=== PATIENT | female | born 1955 | race African-American/Black ===

== ENCOUNTER 2018-10-09 18:18 | Emergency (ER) | payer OTHER ==
[~2018-10-09] VITALS: Ht 157.5 cm; Wt 74.8 kg
--- NOTE | 2018-10-09 18:54 | NUR ---
VERBAL REPORT GIVEN TO ALE ESTRADA.
[2018-10-09 19:35] VITALS: BP 108/66
== END 2018-10-09 19:37 | disposition home or self-care (01) ==
LOC: ER 18:18
DX: F43.21 Adjustment disorder with depressed mood (principal); I10 Essential (primary) hypertension; E11.9 Type 2 diabetes mellitus without complications; F41.9 Anxiety disorder, unspecified; Z86.73 Personal history of transient ischemic attack (TIA), and cerebral infarction without residual deficits
CPT/HCPCS: 99282

== ENCOUNTER 2022-02-18 12:14 | Emergency (ER) | payer MEDICARE, OTHER ==
[~2022-02-18] VITALS: Ht 154.9 cm; Wt 58.5 kg
[2022-02-18] MEDS ORDERED: SODIUM CHLORIDE 0.9% 1000ML 1,000 ML IV STA (12:35)
[2022-02-18] MEDS ORDERED: INSULIN REGULAR, HUMAN 100 UNIT/1 ML IV ONE (12:45)
[2022-02-18] MEDS ORDERED: SODIUM CHLORIDE 0.9% 1000ML 1,000 ML ONE (12:49)
[2022-02-18 13:11] LABS: BASOPHILS % 0.7 % (0.0-1.0); EOSINOPHILS # (AUTO) 0.1 (0.0-0.4); EOSINOPHILS % 1.5 % (0.0-6.0); HEMATOCRIT 36.3 % (34.2-44.1); HEMOGLOBIN 12.2 g/dL (12.0-16.0); LYMPHOCYTES # (AUTO) 1.3 (1.0-3.2); LYMPHOCYTES % 28.5 % (18.0-39.1); MEAN CORPUSCULAR HGB CONC 33.6 g/dL (31-35); MEAN CORPUSCULAR VOLUME 86.2 fL (81-99); MONOCYTES # (AUTO) 0.4 (0.2-0.8); MONOCYTES % 8.5 % (4.4-11.3); NEUTROPHILS # (AUTO) 2.8 (2.1-6.9); NEUTROPHILS % 60.6 % (38.7-80.0); PLATELET COUNT 293 x10e3/uL (140-360); RED BLOOD COUNT 4.21 x10e6/uL (3.6-5.1)
[2022-02-18 13:31] LABS: ALBUMIN 3.5 g/dL (3.5-5.0); ANION GAP 16.6 mmol/L (8-16); CALCIUM 9.3 mg/dL (8.4-10.2); CREATININE, SERUM 1.83 mg/dL (0.57-1.11); POTASSIUM 3.6 mmol/L (3.5-5.1)
[2022-02-18 16:02] VITALS: BP 119/70
== END 2022-02-18 16:08 | disposition home or self-care (01) ==
LOC: ER 12:18
DX: E11.65 Type 2 diabetes mellitus with hyperglycemia (principal); I10 Essential (primary) hypertension; F41.9 Anxiety disorder, unspecified; I69.354 Hemiplegia and hemiparesis following cerebral infarction affecting left non-dominant side
CPT/HCPCS: 36415; 80053; 82948; 85025; 99283; J1817; J7030